=== PATIENT | male | born 1960 | race Two or more races ===

== ENCOUNTER 2025-02-26 15:14 | Emergency (ER) | payer OTHER ==
[~2025-02-26] VITALS: Ht 175.3 cm; Wt 77.1 kg
[2025-02-26] MEDS ORDERED: SIMVASTATIN40 MG PO (15:57)
[2025-02-26] MEDS ORDERED: FAMOTIDINE/PF 20 MG/2 ML VIAL IV PUSH STA (17:04)
[2025-02-26] MEDS ORDERED: FAMOTIDINE/PF 20 MG/2 ML VIAL ONE (17:19)
[2025-02-26 17:51] LABS: BASO % 0.6 % (0.1-1.2); EOS # 0.06 (0.04-0.54); EOS % 1.7 % (0.7-7.0); LYMPH # 1.55 (1.18-3.74); LYMPH % 44.2 % (19.3-53.1); MEAN PLATELET VOLUME 11.60 fl (9.4-12.4); MONO # 0.76 (0.24-0.82); NEUT # 1.09 (1.56-6.13); NEUT % 30.9 % (34.0-71.1); RED CELL DISTRIBUTION WIDTH 13.5 % (11.6-14.4)
[2025-02-26 18:10] LABS: MONO % 21.7 % (4.7-12.5)
[2025-02-26 18:11] LABS: BASOPHIL MAN 1.0 %; LYMPHOCYTE MAN 39.0 %; MONOCYTE MAN 15.0 %; NEUTROPHILS MAN 38.0 %
[2025-02-26 18:13] LABS: ALT/SGPT 60.0 U/L (12-78); AST/SGOT 45.0 U/L (15-37); BILIRUBIN TOTAL 0.32 mg/dL (0.3-1.2); BUN CREA RATIO 19.0 (7.0-25.0); CREATININE SERUM 0.86 mg/dL (0.70-1.30); GFR 89.82; GLOBULINA 3.2 G/DL (2.4-3.5); GLUCOSE FASTING 107.0 mg/dL (65-100); OSMOLALITY SERUM 283.0 MOSM/KG (275-295)
== END 2025-02-26 19:33 | disposition home or self-care (01) ==
LOC: ER 15:15
PROVIDERS: General Practice
DX: K29.60 Other gastritis without bleeding (principal)